=== PATIENT | female | born 1955 | race Caucasian/White ===

== ENCOUNTER 2019-07-27 10:36 | Day surgery (SDC) | payer BC, OTHER ==
[~2019-07-27 10:36] MED LIST: Buffered Lidocaine 1% SYRIN* 1 ML/SYRINGE INTRADERM ONE; Dexamethasone IV* 4 MG/ML 1 ML (4 MG) IV SLOW PU ONE; Famotidine IV* 10 MG/ML 2 ML (20 mg) IV ONE; Lactated Ringers 1000 ML Bag* 1,000 ML IV SCH
[2019-07-27] MEDS ORDERED: fentaNYL* 50 MCG/ML 2 ML VIAL (100 MCG VIAL) ONE (11:49)
[2019-07-27] MEDS ORDERED: Midazolam* 1 MG/ML 2 ML VIAL (2 MG) ONE ×2 (11:49→13:03)
[2019-07-27] MEDS ORDERED: ceFAZolin 2 GM PREMIX in ORs 2 GM/50 ML BAG ONE (12:02)
[2019-07-27] MEDS ORDERED: Buffered Lidocaine 1% SYRIN* 1 ML/SYRINGE INTRADERM ONE ×2 (12:02→12:25)
[2019-07-27] MEDS ORDERED: Dexamethasone IV* 4 MG/ML 1 ML (4 MG) ONE (12:24)
[2019-07-27] MEDS ORDERED: Famotidine IV* 10 MG/ML 2 ML (20 mg) ONE (12:25)
[2019-07-27] MEDS ORDERED: ROPIVACAINE 5 MG/ML 30 ML BTL (0.5%) ONE (12:29)
[2019-07-27] MEDS ORDERED: Lidocaine 1% MPF ** 5 ML VIAL ONE (12:29)
[2019-07-27] MEDS ORDERED: Remifentanil* 2 MG VIAL ONE (13:17)
[2019-07-27] MEDS ORDERED: Bupivacaine 0.25% SDV* 30 ML ONE (13:27)
[2019-07-27] MEDS ORDERED: Propofol* 10 MG/ML 20 ML BTL ONE (14:16)
[2019-07-27 15:34] VITALS: BP 113/69
--- NOTE | 2019-07-27 23:17 | OP ---
DATE OF OPERATION: 07/27/19 - [facility] DATE OF : 55 SURGEON: Bang Munguia MD SENIOR PROGRAM PLANNER: DANIEL Roldan. An speech language pathology assistant was needed for the procedure to aid in positioning of the arm and retraction. ANESTHESIOLOGIST: Dr. Elam. ANESTHESIA: Axillary block plus MAC. PRE-OP DIAGNOSIS: Right distal radius intraarticular fracture. POST-OP DIAGNOSIS: Right distal radius intraarticular fracture. OPERATIVE PROCEDURE: Open reduction internal fixation of right intraarticular, greater than 3-fragment distal radius fracture. INDICATIONS: Ms. Richard has the aforementioned distal radius fracture. We had talked about treatment options, risks, and benefits. She had wanted to proceed with surgery. ESTIMATED BLOOD LOSS: 10 mL. COMPLICATIONS: None. FINDINGS: See above and below. DESCRIPTION OF PROCEDURE: Sofya was seen in the preoperative holding area. The correct side, site, and procedure were identified. We came back to the operating room. The arm was prepped and draped in the usual fashion and a time- out was performed. We did do a pre-scrub. The arm was exsanguinated and tourniquet inflated. She had a type of very arthritic shoulder, I was able to get the arm into adequate position to do the surgery. The Arthrex hand ortega was used and 10 pounds of inline traction were applied. I went ahead and made an incision over the anterior aspect of the FCR tendon, dissection was carried down, the sheath was released. The tendon was retracted ulnarly. The subsheath was released. There was a foreign food cook specialty that was cauterized. The FPL tendon was retracted ulnarly. The pronator quadratus was released off the radial margin and then T'd back transversely to expose the fracture site. Soft tissues around the fracture margins was debrided. I went ahead and reduced the fracture. I then brought in my [employer] Variable Angle distal radius plate and pinned into place. I let off the traction and confirmed the alignment. I then promptly placed little bit more proximal. I secured it with one 2.4-mm cortical screw in the oblong hole. I then placed one 2.4-mm cortical screw distally to get good [id number] apposition. I then filled the remainder of the distal row with 2.4-mm variable angle locking screws. Lastly, the cortical screw was replaced for a locking screw. Again, alignment was confirmed on mini C-arm fluoroscopy and clinically, I then placed two more cortical screws proximally. At this point, everything was looking very good. Fracture was nicely reduced. The wound was irrigated out. The pronator was repaired to the extent possible with 3-0 Vicryl suture. The skin was closed with 4-0 Monocryl suture and Steri-Strips. No additional local anesthetic was infiltrated due to the axillary block. A short-arm plaster splint with both dorsal and volar plaster slabs was applied. Tourniquet was deflated and she was taken to the recovery room in stable condition. [id number]/CPS #: [id number]
== END 2019-07-27 15:37 | disposition home or self-care (01) ==
LOC: OR 10:36
PROVIDERS: ATTEND Orthopaedic Surgery Hand Surgery
DX: S52.571A Other intraarticular fracture of lower end of right radius, initial encounter for closed fracture (principal); J44.9 Chronic obstructive pulmonary disease, unspecified; E03.9 Hypothyroidism, unspecified; F17.210 Nicotine dependence, cigarettes, uncomplicated; M19.011 Primary osteoarthritis, right shoulder; W19.XXXA Unspecified fall, initial encounter; Y92.9 Unspecified place or not applicable; Z85.118 Personal history of other malignant neoplasm of bronchus and lung; Z85.3 Personal history of malignant neoplasm of breast; Z92.21 Personal history of antineoplastic chemotherapy; Z86.718 Personal history of other venous thrombosis and embolism
CPT/HCPCS: 76000; C1713; J0690; J1100; J2250; J2704; J2795; J3010; J3490